=== PATIENT | female | born 1950 | race Caucasian/White ===

== ENCOUNTER 2023-01-27 06:31 | Day surgery (SDC) | payer OTHER ==
[2023-01-26 12:10] LABS: Absolute Lymphocytes (CBC) 1.2 K/uL (0.7-4.9); Hematocrit 36.1 % (36.0-45.0); Lymphocytes % 13.6 % (15.3-44.8); MCV 83.9 fL (80-100); MPV 7.4 fL (7.6-11.3)
[2023-01-26 12:25] LABS: Potassium 3.4 mEq/L (3.5-5.1)
--- NOTE | 2023-01-26 15:34 | EKG ---
Test Date: 2023-01-26 Test Time: 12:19:53 Business Intern: ZEUS MEASUREMENT RESULTS: Intervals: Rate: 90 AR: QRSD: 108 QT: 406 QTc: 496 [place]: P: AR: QRS: 6 T: 111 INTERPRETIVE STATEMENTS: Atrial fibrillation Anterior infarct, age undetermined Abnormal ECG Compared to ECG 09/03/2015 09:01:49 Sinus rhythm no longer present Ventricular premature complex(es) no longer present First degree AV block no longer present Myocardial infarct finding still present Electronically Signed On 01-26-23 15:34:14 CDT by Pal Mattson
[2023-01-27] MEDS ORDERED: BACITRACIN OINTMENT 14 GM TUBE TOP ONE (07:07)
[2023-01-27] MEDS ORDERED: BUPIVACAINE 0.25% PF 30 ML VIAL ONE (07:07)
[2023-01-27] MEDS ORDERED: CEFAZOLIN SODIUM 2 GM/VIAL ONE (07:09)
[2023-01-27] MEDS: NA CHLORIDE 0.9% 1,000 ML ONE ×2 (07:10→08:01)
[2023-01-27] MEDS ORDERED: propofoL 200 MG/20 ML VIAL IV ONE ×3 (07:31→08:41)
[2023-01-27] MEDS ORDERED: LIDOCAINE 2% MPF 5 ML VIAL ONE (07:31)
[2023-01-27] MEDS ORDERED: LIDOCAINE HCL/EPINEPHRINE 20 ML MDV ONE (08:34)
--- NOTE | 2023-01-27 08:55 | P.OP ---
Preoperative diagnosis: Chronic Wound of LEFT Lower Extremity / Osteomyelitis of Great Toe Postoperative diagnosis: Chronic Wound of LEFT Lower Extremity / Osteomyelitis of Great Toe Primary procedure: Partial Ray Amputation of LEFT Hallux Secondary procedure: Debridement of LEFT posteriolateral calf wound Anesthesia: MAC + Local Estimated blood loss: 30cc Specimen: Partial Ray LEFT great toe, Debridement tissue LEFT calf area Findings: 15cm x 8cm area of necrosis to LEFT lower leg, osteo to LEFT hallux Complications: None Transferred to: Recovery Room Condition: Good
[2023-01-27 09:18] VITALS: BP 109/70; TEMP 97.3; O2SAT 100
[2023-01-27] MEDS ORDERED: HYDROCODONE/APAP 7.5/325 MG TAB ONE (10:02)
--- NOTE | 2023-01-27 12:50 | OP ---
Date of Procedure: 01/27/2023 Surgeon: Fan Pete MD, Preoperative Diagnosis: Chronic wound of the left lower extremity/osteomyelitis of the great toe. Postoperative Diagnosis: Chronic wound of the left lower extremity/osteomyelitis of the great toe. Procedures Performed: 1.Partial ray amputation of the left great toe. 2.Debridement of left posterior lateral chronic wound of the lower extremity/calf area. Anesthesia: MAC plus local with Marcaine 0.25% without epinephrine and 1% lidocaine with epinephrine . Estimated Blood Loss: 30 cc. Specimen: 1.Partial ray of the left great toe. 2.Debridement tissue along the left calf area. Findings: 1.Dry gangrene/osteomyelitis of the left great toe. 2.15 cm x 8 cm area of necrosis and dry gangrene to the left lower extremity, posterior lateral calf area. Complications: None. Disposition: Patient transferred to recovery room in good condition. Procedure In Detail: After informed consent was obtained, patient was brought to the operating room, prepped and draped in the usual sterile fashion after adequate anesthesia was achieved. I placed ad ditional anesthetic of 0.25% Marcaine around the left great toe. There was obvious necrosis and skin loss all the way down to the metatarsal head. At this point, I made a T-type circular incision with a T extension on the dorsal aspect of the ray to follow out the distribution of the first ray. I th en dissected circumferentially using electrocautery down to expose the metatarsophalangeal joint. I transected the metatarsophalangeal joint at this point, sent off the toe for pathologic examination. There was not enough adequate tissue behind to close the defect due to the necrosis of the skin and I could not base this on a plantar or dorsal flap. At this point, I extended the T incision on the d orsal aspect of the toe to just behind the metatarsal head. At this point, I used electrocautery and sharp dissection to dissect back all the tendons and tissues away from the metatarsal head. A perio steal elevator was used to sweep back the tissue circumferentially around to allow for a bone cutter to go in and transect the metatarsal head at this point. This was sent off at this point for patholo gic examination as a separate specimen. At this point, I pushed the periosteum back additionally far ther from the cut surface and used a rasp to bevel the edges of the metatarsal bone at this point and flattened out with a rasp to smooth out the remaining metatarsal bone. At this point, the area was copiously irrigated and cleansed. Hemostasis was easily achieved with electrocautery. I then closed the muscle and tendinous connections over the top to protect the residual metatarsal using 3-0 Vicry l sutures in an interrupted fashion. I then reapproximated the skin using interrupted 2-0 nylon sutu res in a vertical mattress type orientation with good hemostasis and approximation of the tissues. A t this point, Xeroform gauze was placed over and a pressure dressing was applied. No additional hemo stat was required, at this point. I then turned my attention to the left calf area where a significa nt large approximately 15 x 8 cm area of chronic wound was appreciated with necrosis. I started with a curette to remove some of this tissue and sharp dissection was required to debride all nonviable t issue at this point. The combination of sharp dissection and curette was used to remove approximatel y 15 cm x 8 cm area of necrotic tissue over the posterior lateral calf area. After the tissue was de brided with a curette, good bleeding tissue was left behind. I used the pulse lavage device to clear out the area. All remaining nonviable tissue was trimmed at this point and removed. I used the pul se lavage once again, and hemostasis was then achieved with electrocautery. I then placed Vashe-soak ed Kerlix over the area. There was a large defect at this point, and a sterile dressing was applied. The patient tolerated the procedure without evidence of any complication and transferred to PACU in good condition. All counts were correct at the end of the case. TK/MODL Voice ID: [id number] Report ID: [id number]
--- NOTE | 2023-01-27 16:00 | EKG ---
Test Date: 2023-01-26 Test Time: 12:23:44 Nurse Advisor: ZEUS MEASUREMENT RESULTS: Intervals: Rate: 88 [place]: QRSD: 100 QT: 410 QTc: 496 [place]: P: IL: QRS: 10 T: 106 INTERPRETIVE STATEMENTS: Atrial fibrillation with a competing junctional pacemaker Anterior infarct, age undetermined Abnormal ECG Compared to ECG 01/26/2023 12:19:53 No significant changes Electronically Signed On 01-27-23 15:57:31 CDT by Pal Mattson
== END 2023-01-27 10:35 | disposition home or self-care (01) ==
LOC: OR 06:31
PROVIDERS: ATTEND Surgery
PROC: 0Y6Q0Z0 Detachment at Left 1st Toe, Complete, Open Approach (ICD-10-PCS; principal; 2023-01-27 07:30)
PROC: 0HBLXZZ Excision of Left Lower Leg Skin, External Approach (ICD-10-PCS; 2023-01-27 07:30)
DX: S81.802D Unspecified open wound, left lower leg, subsequent encounter (principal); I96 Gangrene, not elsewhere classified; M86.8X7 Other osteomyelitis, ankle and foot
CPT/HCPCS: 36415; 80048; 82947; 85025; 88304; 88305; 88311; 93005; J2001; J2704; J7030

== ENCOUNTER 2023-08-23 10:45 | Day surgery (SDC) | payer BC, OTHER ==
[2023-08-20 16:27] LABS: Protime INR 1.66
[2023-08-20 16:45] LABS: Potassium 3.7 mEq/L (3.5-5.1)
--- NOTE | 2023-08-20 16:57 | RAD REPORT ---
EXAM DESCRIPTION: RAD - Chest Pa And Lat (2 Views) - 08/20/2023 3:41 pm CLINICAL HISTORY: pre op pending heart catheterization. Hypertension COMPARISON: No comparisons TECHNIQUE: PA and lateral views of the chest were obtained. FINDINGS: The lungs are clear. Heart size is normal and central vasculature is within normal limits. No pleural effusion or pneumothorax seen. No acute bony finding noted. IMPRESSION: No acute cardiopulmonary process.
[2023-08-20 17:16] LABS: Absolute Lymphocytes (CBC) 1.7 K/uL (0.7-4.9); Hematocrit 36.7 % (36.0-45.0); MPV 8.2 fL (7.6-11.3); Platelets 261 thou/uL (152-406); RBC Red Blood Cell Count 4.83 M/uL (3.86-4.86)
[2023-08-20 18:33] LABS: Anisocytosis 1+; Blood Morphology Comment NOTED (NOT SEEN); Platelet Estimate ADEQ; White Blood Cell Scan OK (OK)
[2023-08-23] MEDS ORDERED: NA CHLORIDE 0.9% 500 ML ONE (11:22)
[2023-08-23] MEDS ORDERED: HEPA 1000U/500MLS 2,000 UNIT/1,000 ML BAG IV ONE (11:50)
[2023-08-23] MEDS ORDERED: LIDOCAINE 1% 20 ML MDV ONE (11:50)
[2023-08-23] MEDS ORDERED: VERAPAMIL HCL 10 MG/4 ML VIAL IV ONE (11:52)
[2023-08-23] MEDS ORDERED: MIDAZOLAM HCL 2 MG/2 ML INJ ONE (11:53)
[2023-08-23] MEDS ORDERED: FENTANYL CITR 100 MCG/2 ML ONE (11:53)
[2023-08-23] MEDS ORDERED: HEPARIN 5000 UNIT/ML 1 ML VIAL ONE (11:53)
[2023-08-23] MEDS ORDERED: HEPARIN 10,000 UNIT/10 ML VIAL IV ONE (11:54)
[2023-08-23] MEDS ORDERED: ATROPINE SULF 1 MG/10 ML SYR IV ONE (11:54)
[2023-08-23] MEDS ORDERED: TICAGRELOR 90 MG TABLET PO ONE (11:54)
[2023-08-23] MEDS ORDERED: CLOPIDOGREL 75 MG TABLET ONE (11:55)
[2023-08-23] MEDS ORDERED: ASPIRIN 325 MG TAB ONE (11:55)
[2023-08-23 12:54] VITALS: TEMP 97.8
[2023-08-23 13:09] VITALS: O2SAT 100
[2023-08-23 14:54] VITALS: BP 144/85
--- NOTE | 2023-08-23 15:20 | OP ---
Date of Procedure: 08/23/2023 Surgeon: SUE DUDLEY Procedures Performed: 1.Selective coronary angiogram. 2.Left heart catheterization. Indication: Chest pain with abnormal stress test suggestive of unstable angina. Access: Right radial artery 6-Cameroonian closed with TR band. Complications: None. Bleeding: Less than 20 mL. Anesthesia: Total sedation time was 30 minutes. Description Of Procedure: After risks, benefits, and alternatives were explained, patient agreed to procedure and signed informed consent. Patient was brought in the cardiac catheterization laboratory , prepped and draped in the usual sterile fashion. Then I accessed right radial artery using [employer] ic micropuncture kit, placed a 6-Cameroonian Slender sheath and took 5-Cam[place]onian [place] 4.0 catheter into the aortic root, engaged the left main, took standard views, and then in the RCA, took standard views and the catheter was pushed over the wire into the LV, measured the LVEDP, and pullback did not record a ny gradient. Then I removed the catheter and the sheath and placed TR band with good hemostasis. Findings: 1.Left main; mid 30% to 40% stenosis. 2.LAD is with luminal irregularities, proximally in the mid segment, there is a stent that has diffu se 10% iSR. Diagonal 1 has severe 80% to 90% stenosis, but very small vessel less than 1 mm and diag onal 2 has the same. LAD distally has 40% focal stenosis. 3.Left circumflex, proximal 40% and then it becomes an OM that has diffuse 30% to 40% stenosis. The left circumflex becomes very small, less than 1 mm vessel with 90% stenosis. 4.RCA; large and dominant, proximal 40%, mid 30%, mid to distal 50% stenosis and then the right PDA has 90% proximal stenosis, very tortuous, heavily calcified vessel and the PLB also has ostial 80% to 90%. 5.LVEDP elevated at 18 mmHg. Conclusion: 1.Severe RCA stenosis. 2.Moderate coronary artery disease elsewhere. Plan: Recommend a complex PCI of the RCA with atherectomy at [place] and if PCI fails as the vess el is very tortuous and heavily calcified, it might be very difficult to get the equipments and the s tents into the PDA and the PLB, she might benefit from bypass surgery if the PCI failed. Follow up w jessica jenkins in the office in 1 to 2 weeks and we will finalize the plan. NENO Voice ID: [id number] Report ID: [id number]
--- NOTE | 2023-08-24 13:42 | EKG ---
Test Date: 2023-08-20 Test Time: 16:22:15 Scraper Tender: USMAN MEASUREMENT RESULTS: Intervals: Rate: 87 NM: QRSD: 100 QT: 402 QTc: 483 [place]: P: NM: QRS: -11 T: 150 INTERPRETIVE STATEMENTS: Atrial fibrillation with premature ventricular or aberrantly conducted complexes Septal infarct, age undetermined Possible Lateral infarct, age undetermined Inferior infarct, age undetermined Abnormal ECG Compared to ECG 01/26/2023 12:23:44 Ventricular premature complex(es) now present Myocardial infarct finding still present Electronically Signed On 08-24-23 13:31:16 ESTIMATOR PRINTING by Lupillo Leyva
== END 2023-08-23 14:30 | disposition home or self-care (01) ==
LOC: CCL 10:45
PROVIDERS: ATTEND Internal Medicine
DX: I25.110 Atherosclerotic heart disease of native coronary artery with unstable angina pectoris (principal); T82.855A Stenosis of coronary artery stent, initial encounter; I77.1 Stricture of artery; I10 Essential (primary) hypertension; I48.91 Unspecified atrial fibrillation; E11.9 Type 2 diabetes mellitus without complications; E78.5 Hyperlipidemia, unspecified; I65.29 Occlusion and stenosis of unspecified carotid artery; Z87.891 Personal history of nicotine dependence; Z79.01 Long term (current) use of anticoagulants; Z79.899 Other long term (current) drug therapy; Z88.8 Allergy status to other drugs, medicaments and biological substances; Z01.810 Encounter for preprocedural cardiovascular examination
CPT/HCPCS: 93005; 85025; 80048; 36415; 83721; 85610; 85730; 71046; 93458; 76937; C1893; Q9966; J1644; J2001; J2250; J3010; J7040; 99152; 99153; J0461

== ENCOUNTER 2023-09-09 10:53 | Day surgery (SDC) | payer OTHER, BC ==
[2023-09-09] MEDS ORDERED: CEFAZOLIN SODIUM 2 GM/VIAL ONE (11:18)
[2023-09-09] MEDS ORDERED: NA CHLORIDE 0.9% 1,000 ML ONE (11:19)
[2023-09-09] MEDS ORDERED: ONDANSETRON 4 MG/2 ML VIAL ONE (11:34)
[2023-09-09] MEDS ORDERED: LIDOCAINE 2% MPF 5 ML VIAL ONE (11:34)
[2023-09-09] MEDS ORDERED: propofoL 200 MG/20 ML VIAL IV ONE (11:34)
[2023-09-09] MEDS ORDERED: FENTANYL CITR 100 MCG/2 ML ONE (11:34)
[2023-09-09] MEDS ORDERED: DEXTROSE 10%-WATER 500 ML IV ONE (11:51)
[2023-09-09] MEDS ORDERED: BUPIVACAINE 0.25% PF 30 ML VIAL ONE (11:56)
[2023-09-09] MEDS ORDERED: EPINEPHRINE 1 MG/ML VIAL ONE (11:56)
[2023-09-09] MEDS ORDERED: LIDOCAINE HCL/EPINEPHRINE 20 ML MDV ONE (12:27)
[2023-09-09] MEDS ORDERED: EPHEDRINE SULF 50 MG/ML VIAL ONE (12:55)
[2023-09-09] MEDS ORDERED: Phenylephrine HCl 10 MG/ML 1 ML VIAL ONE (13:23)
--- NOTE | 2023-09-09 13:42 | P.OP ---
Preoperative diagnosis: RIGHT Central chest cyst, Middle upper back sebacous cyst Postoperative diagnosis: RIGHT Central chest cyst, Middle upper back sebacous cyst Primary procedure: Wide excision of RIGHT Central chest cyst, Middle upper back sebacous cyst Anesthesia: GETA + Local Estimated blood loss: <5cc Specimen: RIGHT Central chest cyst, Middle upper back sebacous cyst Findings: 2cm chest cyst, 8cm x 5cm back cyst into adipose Complications: None Transferred to: Recovery Room Condition: Good
--- NOTE | 2023-09-09 14:10 | OP ---
Surgeon: Fan Pete MD, Preoperative Diagnoses: Right central chest cyst and middle upper back cyst. Postoperative Diagnoses: Right central chest cyst and middle upper back cyst. Procedure: Wide local excision of right central chest cyst and middle upper back sebaceous cyst. Anesthesia: General endotracheal plus local with 0.25% Marcaine as well as 1% lidocaine with epineph rine. Estimated Blood Loss: Less than 5 cc. Specimens: Right central chest cyst and a middle upper back sebaceous cyst. Findings: 1.Approximately 2 cm x 1 cm chest upper right central cyst consistent with a sebaceous cyst. 2.8 cm x 5 cm sebaceous cyst with evidence of prior rupture on upper middle back extending into adip ose. Complications: None. Disposition: Patient transferred to recovery room in good condition. Procedure In Detail: After informed consent was obtained, patient was brought to the operative room, prepped and draped in the usual sterile fashion. After adequate anesthesia was achieved, I injected the area of the right upper chest cyst with 1% lidocaine with epinephrine circumferentially around. I then used a 15 blade to dissect it down the subcutaneous fat and circumferentially used electrocau cheko to remove the cyst in its entirety. Approximately 2 cm x 1 cm adipose tissue was sent off for p athologic examination. The area was copiously irrigated. Hemostasis was achieved with electrocauter y. I then reclosed the wound using interrupted 3-0 nylon sutures in an interrupted fashion with good approximation of tissues and sterile dressing placed over top. I then returned to the back cyst. I then similarly anesthetized this back cyst circumferentially around using 0.25% Marcaine as well as 1% lidocaine. I then performed sequential larger incisions to encompass the entire back cyst which w as found to be approximately 8 cm x 5 cm down through subcutaneous tissues into adipose tissue. This was removed in its entirety and sent off for pathologic examination. The cavity was then irrigated copiously all the way to the subcutaneous fat. I then achieved hemostasis with electrocautery, inspe cted the area for hemostasis which was achieved at this point. I then re-imbricated partially upper and lower poles of this incision to partially close the wound. I then packed the inner aspect of thi s wound as there was evidence of some contamination with Vashe soaked Kerlix and a sterile dressing w as placed over top. The patient tolerated the procedure well without evidence of complication, trans ferred to PACU in good condition. All counts were correct at the end of the case. CHRISTIAN/LUCINDA Voice ID: [id number] Report ID: [id number]
[2023-09-09 15:23] VITALS: BP 138/76; TEMP 97.5; O2SAT 98
== END 2023-09-09 15:47 | disposition home or self-care (01) ==
LOC: OR 10:53
PROVIDERS: ATTEND Surgery
PROC: 0JB70ZZ Excision of Back Subcutaneous Tissue and Fascia, Open Approach (ICD-10-PCS; 2023-09-09)
PROC: 0JB60ZZ Excision of Chest Subcutaneous Tissue and Fascia, Open Approach (ICD-10-PCS; principal; 2023-09-09 14:30)
DX: L72.9 Follicular cyst of the skin and subcutaneous tissue, unspecified (principal)
CPT/HCPCS: 82947 ×3; 88304; 11402; 11406; J2704; J2371; J2001; J3010; J2405; J7030; J0171

== ENCOUNTER 2023-11-16 10:25 | Day surgery (SDC) | payer OTHER, BC ==
[2023-11-16 09:25] LABS: Hematocrit 36.7 % (36.0-45.0); MCV 74.3 fL (80-100); MPV 8.2 fL (7.6-11.3); Platelets 255 thou/uL (152-406); RBC Red Blood Cell Count 4.94 M/uL (3.86-4.86)
[2023-11-16 09:29] LABS: Protime INR 1.47
[2023-11-16 09:42] LABS: Potassium 4.2 mEq/L (3.5-5.1)
[2023-11-16 10:13] LABS: Anisocytosis 2+; Blood Morphology Comment NOTED (NOT SEEN); Platelet Estimate ADEQ; Poikilocytosis 1+; White Blood Cell Scan OK (OK)
[2023-11-16] MEDS ORDERED: FENTANYL CITR 100 MCG/2 ML ONE (10:55)
[2023-11-16] MEDS ORDERED: dexAMETHasone 10 MG/ML VIAL ONE (10:55)
[2023-11-16] MEDS ORDERED: EPINEPHRINE 1 MG/ML VIAL ONE (10:55)
[2023-11-16] MEDS ORDERED: MIDAZOLAM HCL 2 MG/2 ML INJ ONE (10:55)
[2023-11-16] MEDS ORDERED: LIDOCAINE 1% MPF 5 ML VIAL ONE ×2 (10:56→11:37)
[2023-11-16] MEDS: NA CHLORIDE 0.9% 1,000 ML ONE (11:00)
[2023-11-16] MEDS ORDERED: BUPIVACAINE 0.25% PF 10 ML VIAL ONE (11:14)
[2023-11-16] MEDS ORDERED: propofoL 200 MG/20 ML VIAL IV ONE (11:37)
[2023-11-16] MEDS: CEFAZOLIN SODIUM 2 GM/VIAL ONE (12:05)
[2023-11-16] MEDS: LIDOCAINE HCL/EPINEPHRINE 20 ML MDV ONE (12:17)
--- NOTE | 2023-11-16 12:28 | P.OP ---
Preoperative diagnosis: RIGHT Calf Necrotic Wound Postoperative diagnosis: RIGHT Calf Necrotic Wound Primary procedure: Wide local excision of RIGHT Calf Necrotic Wound Anesthesia: MAC + Regional + Local Estimated blood loss: <2cc Specimen: Debridement Tissue Findings: ~ 2cm x 2cm x 2 cm and 1.5cm x 1.5cm, x 1cm RIGHT calf necrosis Complications: None Transferred to: Recovery Room Condition: Good
[2023-11-16] MEDS: LIDOCAINE JELLY 2% 5 ML SYRINGE TOP ONE (12:29)
--- NOTE | 2023-11-16 13:24 | OP ---
Date of Procedure: 11/16/2023 Surgeon: Fan Pete MD, Preoperative Diagnosis: Right calf necrotic wound. Postoperative Diagnosis: Right calf necrotic wound. Procedure Performed: Wide local excision of necrotic right calf wound. Anesthesia: MAC plus local plus regional. Estimated Blood Loss: 2 cc. Specimens: Debridement tissue. Findings: Approximately 2 cm x 2 cm x 2 cm right calf wound and a second 1.5 cm x 1.5 cm x 1 cm righ t calf necrosis. In addition, there was an area of slough present over the calf which was approximat abbie 12 cm x 10 cm, which was addressed. Complication: None. Disposition: Patient transferred to recovery room in good condition. Procedure In Detail: After informed consent was obtained, patient was brought to the operating room, prepped and draped in the usual sterile fashion after adequate anesthesia was achieved. I addressed first 2 areas of necrosis with superficial slough as described above 2 cm x 2 cm roughly at the top using a 15 blade down to subcutaneous tissues. Electrocautery was used to dissect tissue down to goo d viable adipose tissue, sent off for pathologic examination. Additional area of necrosis was more i n the deep dermal plane. I used a 15 blade around this area circumferentially for approximately 1.5 cm x 1.5 cm. This was sent off for pathologic examination of an area of necrosis also in the right c half-way area. I then used a curette to curette all slough off the anterior surface of the calf which was quite heavy, at this point. This was cleaned off in its entirety. The hemostasis was easily achiev ed with electrocautery and then the wounds were packed with Vashe soaked 0.5 inch dressing and a ster ile dressing placed over the top. The patient tolerated the procedure without incident or complicati on. Transferred to PACU in good condition. All counts were correct at the end of the case. TK/MODL Voice ID: [id number] Report ID: [id number]
[2023-11-16 13:47] VITALS: BP 140/75; TEMP 97.2; O2SAT 100
== END 2023-11-16 14:14 | disposition home or self-care (01) ==
LOC: OR 10:25
PROVIDERS: ATTEND Surgery
PROC: 0JBN3ZZ Excision of Right Lower Leg Subcutaneous Tissue and Fascia, Percutaneous Approach (ICD-10-PCS; principal; 2023-11-16 12:30)
DX: L97.212 Non-pressure chronic ulcer of right calf with fat layer exposed (principal); E11.622 Type 2 diabetes mellitus with other skin ulcer; I96 Gangrene, not elsewhere classified; I48.91 Unspecified atrial fibrillation; I25.2 Old myocardial infarction; E66.9 Obesity, unspecified; G47.33 Obstructive sleep apnea (adult) (pediatric); Z86.73 Personal history of transient ischemic attack (TIA), and cerebral infarction without residual deficits
CPT/HCPCS: 11042; 85025; 80048; 36415; 85610; 82947 ×2; 88304; 85730; J2704; J2001 ×2; J2250; J3010; J1100; J0171; J7030

== ENCOUNTER 2023-12-18 16:15 | Emergency (ER) | payer OTHER, BC ==
[2023-12-18 17:12] LABS: Hematocrit 36.7 % (36.0-45.0); Hemoglobin 11.2 g/dL (12.0-15.0); RBC Red Blood Cell Count 5.05 M/uL (3.86-4.86)
[2023-12-18 17:13] LABS: MCH 22.1 pg (27.0-35.0); MCHC 30.4 g/dL (32.0-36.0); MCV 72.8 fL (80-100); MPV 7.5 fL (7.6-11.3); Platelets 431 thou/uL (152-406); Red Cell Distribution Width 21.9 % (12.1-15.2)
--- NOTE | 2023-12-18 17:40 | RAD REPORT ---
EXAM DESCRIPTION: CT - Head C Spine Mpr Wo Con - 12/18/2023 5:21 pm CLINICAL HISTORY: Head and neck injury status post fall. Head and neck pain COMPARISON: None. TECHNIQUE: Computed axial tomography of the head and cervical spine was obtained. Sagittal and coronal reconstruction was performed. All CT scans are performed using dose optimization technique as appropriate and may include automated exposure control or mA/KV adjustment according to patient size. FINDINGS: An intracranial bleed is not seen. The ventricles are normal in caliber. 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 An extra-axial fluid collection is not noted. Fluid within the visualized sinuses and mastoids is not seen A cervical fracture is not visualized. No dislocation is noted. IMPRESSION: No acute intracranial abnormality is seen. A cervical fracture is not visualized. If the patient continues to have symptoms to suggest intracranial /spinal cord pathology then MRI wou ld be recommended
--- NOTE | 2023-12-18 18:08 | ER ---
Nurse's Notes [facility] Name: Viviane Pena Age: 73 yrs Sex: Female : 1950 Arrival Date: 12/18/2023 Time: 16:15 Bed 3 Private MD: Diagnosis: Fall on same level, unspecified;Essential (primary) hypertension Presentation: 12/17 16:26 Chief complaint: EMS states: FALL FROM HOME STATES HIT HEAD. FOUND BY EMS SITTING ON db FLOOR. PT ON ELOQUIS, NO LOC, DENIES NECK/BACK PAIN. WANTED TO COME TO [facility] BECAUSE DR. NAGEL IS HERE AND IS HER DOCTOR. Coronavirus screen: Client denies travel out of the [place] in the last 14 days. At this time, the client does not indicate any symptoms associated with coronavirus-19. Ebola Screen: Patient negative for fever greater than or equal to 101.5 degrees Fahrenheit, and additional compatible Ebola Virus Disease symptoms Patient denies exposure to infectious person. Patient denies travel to an Ebola-affected area in the 21 days before illness onset. No symptoms or risks identified at this time. Initial Sepsis Screen: Does the patient meet any 2 criteria? No. Patient's initial sepsis screen is negative. Does the patient have a suspected source of infection? No. Patient's initial sepsis screen is negative. Risk Assessment: Do you want to hurt yourself or someone else? Patient reports no desire to harm self or others. Onset of symptoms was December 18, 2023. 16:26 Method Of Arrival: EMS: [facility] db 16:26 Acuity: MINA 2 db Triage Assessment: 16:35 General: Appears in no apparent distress. comfortable, Behavior is calm, cooperative. db Pain: Complains of pain in scalp. Neuro: Level of Consciousness is awake, alert, obeys commands, Oriented to person, place, time, situation. Respiratory: Airway is patent Respiratory effort is even, unlabored, Respiratory pattern is regular, symmetrical. Historical: - Allergies: 16:35 Amiodarone; db 16:35 Lisinopril; db - Home Meds: 16:35 Eliquis oral [Active]; db - PMHx: 16:35 Hypertensive disorder; Cerebrovascular accident; db - Immunization history:: Adult Immunizations unknown. - Social history:: Smoking status: Patient denies any tobacco usage or history of. Screenin:37 [facility] ED Fall Risk Assessment (Adult) History of falling in the last 3 months, db including since admission Yes- single mechanical fall (1 pt) Confusion or Disorientation No (0 pts) Intoxicated or Sedated No (0 pts) Impaired Gait Yes (1 pt) Mobility Assist Device Used No (0 pt) Altered Elimination No (0 pt) Score/Fall Risk Level 3 or more points = High Risk Oriented to surroundings, Maintained a safe environment. Abuse screen: Denies threats or abuse. Denies injuries from another. Nutritional screening: No deficits noted. Tuberculosis screening: No symptoms or risk factors identified. Assessment: 16:37 Reassessment: Patient appears in no apparent distress at this time. Patient and/or db family updated on plan of care and expected duration. Pain level reassessed. Patient is alert, oriented x 3, equal unlabored respirations, skin warm/dry/pink. General: Appears in no apparent distress. comfortable, Behavior is calm, cooperative. Pain: Denies pain. Neuro: Level of Consciousness is awake, alert, obeys commands, Oriented to person, place, time, situation, Speech is normal, Facial symmetry appears normal. Cardiovascular: No deficits noted. Respiratory: No deficits noted. Airway is patent Respiratory effort is even, unlabored, Respiratory pattern is regular, symmetrical. GI: No deficits noted. No signs and/or symptoms were reported involving the gastrointestinal system. : No deficits noted. No signs and/or symptoms were reported regarding the genitourinary system. EENT: No deficits noted. No signs and/or symptoms were reported regarding the EENT system. Derm: No deficits noted. No signs and/or symptoms reported regarding the dermatologic system. 17:58 Reassessment: No changes from previously documented assessment. Patient and/or family mb9 updated on plan of care and expected duration. Pain level reassessed. Patient is alert, oriented x 3, equal unlabored respirations, skin warm/dry/pink. 18:05 Reassessment: CALLED PATIENT SPOUSE NARAYAN PENA FOR PATIENT RIDE HOME. STATES IS ON HIS db WAY FROM [place]. Vital Signs: 16:26 BP 134 / 100; Pulse 49; Resp 20; Temp 97.5(O); Pulse Ox 97% ; Weight 93.89 kg; Height 5 db ft. 4 in. ; 17:00 BP 140 / 98; Pulse 89; Resp 20; Pulse Ox 98% on R/A; mb9 16:26 Body Mass Index 35.53 (93.89 kg, 162.56 cm) db ED Course: 16:19 Patient arrived in ED. eb 16:21 Jos Camarena DO is Attending Physician. ms3 16:24 Arm band placed on Patient placed in an exam room, on a stretcher. as6 16:32 Leslie Germain, RN is Primary Nurse. db 16:35 Triage completed. db 16:37 Patient has correct armband on for positive identification. Bed in low position. Call db light in reach. Side rails up X 1. cardiac monitor technician on. Pulse ox on. NIBP on. Warm blanket given. 16:58 Maintain EMS IV. Dressing intact. Good blood return noted. Site clean \T\ dry. Gauge \T\ ll 1 site: 20 L hand. 16:59 CBC w/o diff Sent. as6 17:00 Provided Education on: LABS. db 17:02 Pillow given. pulled up in bed, checked to make sure brief wasn't bunched up under her. ll1 Brief is clean and dry, in proper position. Tolerated well. 17:[address] via stretcher. db 17:23 CT Head C Spine In Process Unspecified. EDMS 17:27 Patient moved back from CT. db 18:39 No provider procedures requiring assistance completed. IV discontinued, intact, mb9 bleeding controlled, No redness/swelling at site. Pressure dressing applied. Administered Medications: No medications were administered Medication: 17:08 VIS not applicable for this client. ll1 Outcome: 18:08 Discharge ordered by . ms3 18:39 Discharged to home ambulatory, with family, mb9 18:39 Condition: stable 18:39 Discharge instructions given to patient, family, Instructed on discharge instructions, follow up and referral plans. Demonstrated understanding of instructions, follow-up care, 18:39 Patient left the ED. mb9 Signatures: Dispatcher [employer] EDMS Clau Sibley Lynsay, RN RN ll1 Jos Camarena DO DO ms3 Lorenzo Sy RN RN as6 Leslie Germain, RN RN Yara Lozano RN RN mb9 Corrections: (The following items were deleted from the chart) 18:39 17:00 BP 140 / 98; Pulse 40bpm; Resp 20bpm; Pulse Ox 98% RA; db mb9
--- NOTE | 2023-12-18 18:08 | EDPHYS ---
Physician Documentation [facility] Name: Viviane Pena Age: 73 yrs Sex: Female : 1950 Arrival Date: 12/18/2023 Time: 16:15 Bed 3 Private MD: ED Physician Jos Camarena HPI: 12/17 18:08 This 73 yrs old Female presents to ER via EMS with complaints of Fall Injury. ms3 18:08 73-year-old female with past medical history of hypertension and CVA presents to the [facility] emergency department status post losing her balance and falling. EMS notes patient did hit her head and is currently on Plavix and Eliquis. Patient is denying neck or back pain at this time. Historical: - Allergies: 16:35 Amiodarone; db 16:35 Lisinopril; db - Home Meds: 16:35 Eliquis oral [Active]; db - PMHx: 16:35 Hypertensive disorder; Cerebrovascular accident; db - Immunization history:: Adult Immunizations unknown. - Social history:: Smoking status: Patient denies any tobacco usage or history of. ROS: 18:08 Constitutional: Negative for fever, and chills. Neck: Negative for injury, pain, and ms3 swelling, Cardiovascular: Negative for chest pain, and palpitations. Respiratory: Negative for shortness of breath, cough, wheezing, and pleuritic chest pain, Abdomen/GI: Negative for abdominal pain, nausea, vomiting, diarrhea, and constipation, MS/Extremity: Negative for injury and deformity, Skin: Negative for injury, rash, and discoloration, Exam: 18:08 Constitutional: This is a well developed, well nourished patient who is awake, alert, ms3 and in no acute distress. Head/Face: Normocephalic, atraumatic. Chest/axilla: Normal chest wall appearance and motion. Nontender with no deformity. Cardiovascular: Regular rate and rhythm with a normal S1 and S2. No gallops, murmurs, or rubs. Normal PMI, no JVD. No pulse deficits. Respiratory: Lungs have equal breath sounds bilaterally, clear to auscultation and percussion. No rales, rhonchi or wheezes noted. No increased work of breathing, no retractions or nasal flaring. Abdomen/GI: Soft, non-tender, with normal bowel sounds. No distension or tympany. No guarding or rebound. No evidence of tenderness throughout. 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 Vital Signs: 16:26 BP 134 / 100; Pulse 49; Resp 20; Temp 97.5(O); Pulse Ox 97% ; Weight 93.89 kg; Height 5 db ft. 4 in. ; 17:00 BP 140 / 98; Pulse 89; Resp 20; Pulse Ox 98% on R/A; mb9 16:26 Body Mass Index 35.53 (93.89 kg, 162.56 cm) db MDM: 16:22 Patient medically screened. ms3 18:10 Differential diagnosis: abrasion, closed head injury, contusion. Data reviewed: vital ms3 signs, nurses notes, and as a result, I will discharge patient. Management of patient was discussed with the following: Rolfer: Dr Mendez- recommends CBC. Independent interpretation of the following test(s) in the Emergency Department CT Scan: My interpretation is CT Head without contrast reviewed does not reveal ICH. Counseling: I had a detailed discussion with the patient and/or guardian regarding the historical points, exam findings, and any diagnostic results supporting the discharge/admit diagnosis, lab results, radiology results, the need for outpatient follow up, to return to the emergency department if symptoms worsen or persist or if there are any questions or concerns that arise at home. Special discussion: I discussed with the patient/guardian in detail that at this point there is no indication for admission to the hospital. It is understood, however, that if the symptoms persist or worsen the patient needs to return immediately for re-evaluation. ED course: Discussed labs, CT findings with the patient. Patient to follow-up with primary care physician 2 to 3 days. Patient or stands and agrees with plan. All questions were answered. Return precautions discussed include worsening symptoms, or any other concerns. 12/17 16:24 Order name: CBC w/o diff; Complete Time: 17:51 ms3 12/17 16:22 Order name: CT Head C Spine; Complete Time: 17:51 ms3 Administered Medications: No medications were administered Disposition Summary: 12/18/23 18:08 Discharge Ordered Notes: Location: Home ms3 Condition: Stable ms3 Diagnosis - Fall on same level, unspecified ms3 - Essential (primary) hypertension ms3 Discharge Instructions: - Discharge Summary Sheet ms3 - Hypertension, Adult ms3 - DASH Eating Plan ms3 Forms: - Medication Reconciliation Form ms3 - Thank You Letter ms3 - Antibiotic Education ms3 - Prescription Opioid Use ms3 - Patient Portal Instructions ms3 - Leadership Thank You Letter ms3 Signatures: Dispatcher [employer] EDJos Buckner, DO ms3 Leslie Germain RN RN db
== END 2023-12-18 18:39 | disposition home or self-care (01) ==
LOC: ER 16:15
DX: Z04.3 Encounter for examination and observation following other accident (principal); W18.30XA Fall on same level, unspecified, initial encounter; I10 Essential (primary) hypertension; Z86.73 Personal history of transient ischemic attack (TIA), and cerebral infarction without residual deficits; Z88.8 Allergy status to other drugs, medicaments and biological substances; Z79.01 Long term (current) use of anticoagulants
CPT/HCPCS: 36415; 70450; 72125; 85027; 99285